=== PATIENT | female | born 1955 | race Caucasian/White ===

== ENCOUNTER 2016-06-28 11:43 | Outpatient (CLI) ==
[2016-05-09 20:56] VITALS: BMI 34.9
[2016-06-28 13:35] LABS: ALBUMIN 4.6 g/dL (3.4-5.0); ALBUMIN/GLOBULIN RATIO 1.39; ANION GAP 15.7; BILIRUBIN,TOTAL 0.61 mg/dL (0.00-1.20); CALCIUM 9.5 mg/dL (8.2-10.2); CHOL/HDL RATIO 7.3 (4.5-5.5); CREATININE 1.82 mg/dL (0.60-1.30); POTASSIUM 3.7 mmol/L (3.5-5.10); TOTAL PROTEIN 7.9 g/dL (6.4-8.2)
[2016-06-28 14:01] LABS: BUN/CREATININE RATIO 14.28
== END 2016-06-28 11:44 | disposition home or self-care (01) ==
LOC: LAB 11:43
PROVIDERS: ATTEND Nurse Practitioner Family
DX: E78.5 Hyperlipidemia, unspecified (principal); E78.1 Pure hyperglyceridemia
CPT/HCPCS: 36415; 80053; 80061

== ENCOUNTER 2016-07-13 07:36 | Outpatient (CLI) | payer OTHER ==
[2016-05-09 20:56] VITALS: BMI 34.9
--- NOTE | 2016-07-13 09:36 | US ---
EXAM: Ultrasound abdomen limited HISTORY: Right upper quadrant abdominal tenderness COMPARISON: None TECHNIQUE: Limited ultrasound abdomen right upper quadrant was performed FINDINGS: Visualized portion pancreas appears normal. Portions of the pancreas obscured secondary bowel gas shadowing. Liver is top normal in size. Liver is diffusely increased and echogenicity. Gallbladder is fluid-filled without gallbladder wall thickening, pericholecystic fluid, or shadowing gallstones. No biliary duct dilation with the common bile duct measuring 0.5 cm. Right kidney keshav sures 8.3 cm in length without hydronephrosis. IMPRESSION: 1. No cholelithiasis or cholecystitis. 2. Echogenic liver, consistent with hepatic steatosis and/or hepatic parenchymal disease.
[2016-07-13 13:00] LABS: BASOPHILS # (AUTO) 0.1 K/uL (0-0.2); BASOPHILS % (AUTO) 0.9 % (0.0-3.0); EOSINOPHILS # (AUTO) 0.2 K/ul (0.0-0.7); EOSINOPHILS % (AUTO) 2.3 % (0.0-7.0); HEMATOCRIT 41.2 % (37.0-47.0); HEMOGLOBIN 13.3 g/dl (12.0-16.0); IMMATURE GRANULOCYTE % (AUTO) 0.1 % (0.0-5.0); LYMPHOCYTES # (AUTO) 3.3 K/uL (0.60-3.4); MEAN CORPUSCULAR HEMOGLOBIN 28.3 pg (27.0-31.0); MEAN CORPUSCULAR HGB CONC 32.3 (31.8-35.4); MEAN CORPUSCULAR VOLUME 87.7 fl (81.0-99.0); MONOCYTES # (AUTO) 0.4 K/uL (0.4-2.0); MONOCYTES % (AUTO) 5.4 (0-10); NEUTROPHILS % (AUTO) 43.3; PLATELET COUNT 265 10^3/uL (140-440); WHITE BLOOD COUNT 6.91 K/ul (4.6-10.2)
[2016-07-13 13:31] LABS: ALBUMIN 4.8 g/dL (3.4-5.0); ALBUMIN/GLOBULIN RATIO 1.3; ANION GAP 21.7; BILIRUBIN,TOTAL 0.56 mg/dL (0.00-1.20); BUN/CREATININE RATIO 15.68; CREATININE 2.55 mg/dL (0.60-1.30); FERRITIN 111.72 ng/mL (4.63-204.00); POTASSIUM 3.7 mmol/L (3.5-5.10); TOTAL PROTEIN 8.5 g/dL (6.4-8.2)
== END 2016-07-13 07:37 | disposition home or self-care (01) ==
LOC: RAD 07:36
PROVIDERS: ATTEND Nurse Practitioner Family
DX: D64.9 Anemia, unspecified (principal); E78.5 Hyperlipidemia, unspecified; E03.9 Hypothyroidism, unspecified; R11.10 Vomiting, unspecified; R10.811 Right upper quadrant abdominal tenderness
CPT/HCPCS: 36415; 80053; 82150; 82607; 82728; 83540; 83550; 83690; 84443; 84466; 85025

== ENCOUNTER 2016-07-13 15:15 | Emergency (ER) | payer OTHER ==
[2016-07-13 15:21] VITALS: BP 125/85; TEMP 98.7; BMI 30.4
--- NOTE | 2016-07-13 16:27 | CT ---
EXAM: CT abdomen pelvis without contrast HISTORY: Epigastric pain, high amylase COMPARISON: 07/02/2014 TECHNIQUE: CT abdomen pelvis performed without intravenous contrast. Coronal and sagittal reformat jorge images obtained. FINDINGS: Lung bases clear. No free air. No acute abnormalities of the bones. There is posterior spinal fusion hardware in the lumbar spine. There are degenerative changes in the spine. Several o ld healed lower right rib fractures. Evaluation organ parenchyma limited without contrast. Heart is normal in size. Liver appears normal. Gallbladder appears normal. Pancreas appears normal. Sple en appears normal, excepting for granulomatous calcification. Adrenals appear normal. No hydroneph rosis or nephrolithiasis. There are areas of right renal cortical scarring. Bladder only mildly di stended and poorly evaluated, grossly unremarkable. The uterus appears normal. Aorta normal in chanell iber with atherosclerosis. Stomach appears normal. No dilated loops small bowel. Appendix appears normal. Colon appears normal. No inflammatory stranding in the abdomen or pelvis. There is a wide neck fat-containing left lateral pelvic wall hernia with colon approaching though not appearing to enter the hernia. IMPRESSION: 1. No acute inflammatory process identified in the abdomen or pelvis. 2. Areas of right renal cortical scarring, likely due to remote insult. 3. Left lateral pelvic wall hernia as described.
[2016-07-13] MEDS ORDERED: ZOFRAN 4 MG/2 ML IV STA (17:14)
[2016-07-13] MEDS ORDERED: MORPHINE 4 MG/ML SYRINGE IVP STA (17:14)
--- NOTE | 2016-07-13 17:32 | ED.PDOC ---
General ED Provider: Dr. SCARLETT AMAYA Chief Complaint: Nausea/Vomiting Stated Complaint: n/v Time Seen by Physician: 15:16 (history of renal failure, anemia requiring transfuion) Mode of Arrival: Walk-In Information Source: Patient Exam Limitations: No limitations Nursing and Triage Documentation Reviewed and Agree: Yes (in the E/D FOR ABNORMAL OUT PT LABS) Miscellaneous Complaint Exam - Complex/Multi-System Complaint/Exam Onset/Duration: CHRONIC Symptoms Are: Resolved Episodes Lasting: Days Initial Severity: Mild Current Severity: Mild Associated Signs and Symptoms: Reports: Weakness, Nausea, Vomiting. Denies: Decreased responsiveness, Confusion, Agitation, Dizziness, Syncope, Headache, Short of air, Cough, Wheezing, Hemoptysis, Chest pain, Palpitations, Edema, Diarrhea, Abdominal pain, Back pain, Dysuria, Hematemesis, Melena, Decreased oral intake, Fever, Diaphoresis, Immunocompromised, Anticoagulation Therapy, Recent medication changes, Indwelling medical records coder, Prior MRSA, Prior VRE, Recent trauma, Remote trauma Recent Echo/LV Function: Yes Respiratory Distress: None JVD Present: No Tachypnea Present: No Stridor Present: No Abdominal Findings: Present: Normal findings Glascow Coma Scale (see protocol): 15 Meningeal Signs Positive: No Focal Weakness: Present: None Focal Sensory Loss: Present: None Gait: Normal Babinski Sign: Negative Right, Negative Left Skin Findings: Present: Normal findings Review of Systems - Review Of Systems Constitutional: Reports: No symptoms Eyes: Reports: No symptoms Ears, Nose, Mouth, Throat: Reports: No symptoms Respiratory: Reports: No symptoms Cardiac: Reports: No symptoms GI: Reports: Nausea, Vomiting : Reports: No symptoms Musculoskeletal: Reports: No symptoms Skin: Reports: No symptoms Neurological: Reports: No symptoms Endocrine: Reports: No symptoms Hematologic/Lymphatic: Reports: No symptoms All Other Systems: Reviewed and Negative Past Medical History - Past Medical History Previously Healthy: Yes Endocrine: Reports: None, DM 2 Cardiovascular: Reports: Hypertension Respiratory: Reports: COPD Hematological: Reports: Anemia Gastrointestinal: Reports: None Genitourinary: Reports: None Neuro/Psych: Reports: TIA, Anxiety, Depression, Bipolar Disorder Musculoskeletal: Reports: Back Pain (PREVIOUS BACK FRACTURES) Cancer: Reports: None Last Menstrual Period: menopause Other Pertinent Past Medical History: BACK SURGERY TO REPAIR FRACTURES. - Surgical History General Surgical History: Reports: Orthopedic (BACK SURGERY TO REPAIR FRACTURES) , Back Surgery (BACK SURGERY TO REPAIR FRACTURES.). Denies: Tubal ligation ( left ovary removed) - Family History Family History: Reports: Unknown - Social History Smoking Status: Never smoker Hx Substance Use: No Alcohol Screening: Occasionally Physical Exam - Physical Exam Appearance: Well-appearing, No pain distress, Well-nourished Eyes: ONIEL, EOMI, Conjunctiva clear ENT: Ears normal, Nose normal, Oropharynx normal Respiratory: Airway patent, Breath sounds clear, Breath sounds equal, Respirations nonlabored Cardiovascular: RRR, Pulses normal, No rub, No murmur GI/: Soft, Nontender, No masses, Bowel sounds normal, No Organomegaly Musculoskeletal: Normal strength, ROM intact, No edema, No calf tenderness Skin: Warm, Dry, Normal color Neurological: Sensation intact, Motor intact, Reflexes intact, Cranial nerves intact, Alert, Oriented Psychiatric: Affect appropriate, Mood appropriate Physician Notification - Case Discussed Physician Notified: MUKUND HILL Time of Notification: 17:33 (GNOSTICISM) Critical Care Note - Critical Care Note Total Time (mins): 0 Course - Course Orders, Labs, Meds: Orders Category Date Time Status NPO REMINDER: IMAGING ONCE CARE 07/13/16 15:31 Completed SERUM PROTEIN ELECTROPHORESIS Routine LAB 07/13/16 17:13 Received URINALYSIS C & S IF INDICATED Stat LAB 07/13/16 17:21 Ordered URINE PROTEIN ELECTROPHORESIS Routine LAB 07/13/16 17:13 Received Morphine Sulfate [Morphine 4 mg/ml Syringe] MEDS 07/13/16 17:14 Discontinued 2 mg IVP ONCE STA Ondansetron HCl/Pf [Zofran 4 mg/2 ml] MEDS 07/13/16 17:14 Discontinued 4 mg IV ONCE STA CT ABDOMEN/PELVIS WO CONTRAST Stat RADS 07/13/16 15:30 Completed Medications Discontinued Medications Generic Name Dose Route Start Last Admin Trade Name Freq PRN Reason Stop Dose Admin Morphine Sulfate 2 mg 07/13/16 17:14 Morphine 4 Mg/Ml Syringe IVP 07/13/16 17:15 ONCE STA Ondansetron HCl 4 mg 07/13/16 17:14 Zofran 4 Mg/2 Ml IV 07/13/16 17:15 ONCE STA Vital Signs: Temp Pulse Resp BP Pulse Ox 07/13/16 15:16 98.7 F 89 16 125/85 98 Departure - Departure Time of Disposition: 17:33 Disposition: TSF SHORT-TRM HOSP Discharge Problem: Nausea, Vomiting, Renal failure Instructions: Chronic Kidney Disease (ED) Condition: Good Pt referred to PMD for follow-up: Yes (TRANSFERED ) Allergies/Adverse Reactions: Allergies amitriptyline [From Elavil] Adverse Reaction (Verified 07/13/16 15:23) amoxicillin Adverse Reaction (Verified 07/13/16 15:23) bupropion [From Wellbutrin] Adverse Reaction (Verified 07/13/16 15:23) chlorpromazine [From Thorazine] Adverse Reaction (Verified 07/13/16 15:23) divalproex sodium [From Depakote] Adverse Reaction (Verified 07/13/16 15:23) fluoxetine [From Prozac] Adverse Reaction (Verified 07/13/16 15:23) haloperidol [From Haldol] Adverse Reaction (Verified 07/13/16 15:23) lithium Adverse Reaction (Verified 07/13/16 15:23) paroxetine [From Paxil] Adverse Reaction (Verified 07/13/16 15:23) trazodone Adverse Reaction (Verified 07/13/16 15:23) Home Medications: Ambulatory Orders Metoprolol Tartrate [Lopressor] 50 mg PO BID 09/28/14 Hydrocodone/Acetaminophen [Hydrocodon-Acetaminoph 7.5-325] 1 each PO Q8H PRN Clonidine HCl 0.1 mg PO BEDTIME 01/13/16 Esomeprazole Magnesium [Nexium] 40 mg PO DAILY 01/13/16 Atorvastatin Calcium [Lipitor] 10 mg PO DAILY 04/20/16 Levothyroxine Sodium [Synthroid] 25 mcg PO QDAC #30 tablet 05/11/16 Metformin HCl [Glucophage] 500 mg PO BIDWM 05/11/16 Disposition Discussed With: Patient
[2016-07-13] MEDS ORDERED: SODIUM CHLORIDE 500 ML IV STA (17:35)
[2016-07-13 18:46] LABS: BILIRUBIN,URINE 1+ (NEGATIVE); KETONES,URINE Negative (NEGATIVE); LEUKOCYTE ESTERASE ,URINE 2+ (NEGATIVE); NITRITE,URINE Negative (NEGATIVE); PROTEIN,URINE 1+ (NEGATIVE); URINE, BLOOD Negative (NEGATIVE)
[2016-07-13 18:50] LABS: ADD URINE MICROSCOPIC YES
[2016-07-13 18:51] LABS: BACTERIA,URINE TRACE (NOT PRESENT)
[2016-07-16 13:09] LABS: A/G RATIO 1.1 (0.7-1.7); ALPHA-1 GLOBULIN 0.2 g/dL (0.0-0.4); ALPHA-2 GLOBULIN 1.2 g/dL (0.4-1.0); GAMMA GLOBULIN 0.9 g/dL (0.4-1.8); TOTAL GLOBULINS 3.4 g/dL (2.2-3.9)
[2016-07-16 15:13] LABS: URINE ALBUMIN 54.8 % (.); URINE ALPHA-1 GLOBULIN 3.7 % (.); URINE ALPHA-2 GLOBULIN 9.6 % (.); URINE BETA GLOBULIN 21.1 % (.); URINE GAMMA GLOBULIN 10.8 % (.); URINE M-SPIKE % 1.8 % (Not Observed); URINE TOTAL PROTEIN 84.7 mg/dL (Not Estab.)
== END 2016-07-13 18:40 | disposition short-term general hospital (02) ==
LOC: ED 15:15
DX: R11.2 Nausea with vomiting, unspecified (principal); N19 Unspecified kidney failure; R53.1 Weakness; D64.9 Anemia, unspecified; E11.9 Type 2 diabetes mellitus without complications; I10 Essential (primary) hypertension; Z79.899 Other long term (current) drug therapy; E78.5 Hyperlipidemia, unspecified; E03.9 Hypothyroidism, unspecified; R10.811 Right upper quadrant abdominal tenderness
CPT/HCPCS: 36415; 80053; 81001; 82150; 82607; 82728; 83540; 83550; 83690; 84156; 84165; 84166; 84443; 84466; 85025; 96361; 96374; 96375; 99285

== ENCOUNTER 2016-07-13 18:39 | Outpatient (CLI) ==
[2016-07-13 15:21] VITALS: BMI 30.4
== END 2016-07-13 18:40 | disposition home or self-care (01) ==
LOC: AMBL 18:39
PROVIDERS: ATTEND Internal Medicine
DX: R11.2 Nausea with vomiting, unspecified (principal)

== ENCOUNTER 2016-07-20 12:18 | Outpatient (CLI) | payer OTHER ==
[2016-07-20 13:34] LABS: ALBUMIN/GLOBULIN RATIO 1.21; ANION GAP 17.6; BILIRUBIN,TOTAL 0.33 mg/dL (0.00-1.20); BUN/CREATININE RATIO 12.19; CALCIUM 8.3 mg/dL (8.2-10.2); CREATININE 1.23 mg/dL (0.60-1.30); POTASSIUM 3.6 mmol/L (3.5-5.10); TOTAL PROTEIN 7.3 g/dL (6.4-8.2)
== END 2016-07-20 12:19 | disposition home or self-care (01) ==
LOC: LAB 12:18
PROVIDERS: ATTEND Nurse Practitioner Family
DX: R94.4 Abnormal results of kidney function studies (principal); Z87.828 Personal history of other (healed) physical injury and trauma
CPT/HCPCS: 36415; 80053

== ENCOUNTER 2016-07-23 10:42 | Outpatient (CLI) | payer OTHER ==
[2016-07-23 13:03] LABS: CHOL/HDL RATIO 6.2 (4.5-5.5)
== END 2016-07-23 10:43 | disposition home or self-care (01) ==
LOC: LAB 10:42
PROVIDERS: ATTEND Nurse Practitioner Family
DX: E11.9 Type 2 diabetes mellitus without complications (principal); E78.5 Hyperlipidemia, unspecified
CPT/HCPCS: 36415; 80061; 83036

== ENCOUNTER 2016-08-10 13:40 | Outpatient (CLI) | payer OTHER ==
[2016-08-10 17:31] LABS: ALBUMIN 4.1 g/dL (3.4-5.0); ALBUMIN/GLOBULIN RATIO 1.24; ANION GAP 16.2; BILIRUBIN,TOTAL 0.59 mg/dL (0.00-1.20); BUN/CREATININE RATIO 16.5; CALCIUM 9.3 mg/dL (8.2-10.2); CREATININE 1.03 mg/dL (0.60-1.30); POTASSIUM 4.2 mmol/L (3.5-5.10); TOTAL PROTEIN 7.4 g/dL (6.4-8.2)
== END 2016-08-10 13:41 | disposition home or self-care (01) ==
LOC: LAB 13:40
PROVIDERS: ATTEND Nurse Practitioner Family
DX: R11.2 Nausea with vomiting, unspecified (principal)
CPT/HCPCS: 36415; 80053; 82150; 83690

== ENCOUNTER 2016-08-23 08:20 | Emergency (ER) | payer OTHER ==
[2016-08-23 08:24] VITALS: TEMP 96.8; BMI 31.1
[2016-08-23] MEDS ORDERED: ZOFRAN 4 MG/2 ML IM STA (08:32)
[2016-08-23] MEDS ORDERED: MORPHINE 4 MG/ML SYRINGE IM STA (08:32)
[2016-08-23 08:55] LABS: BASOPHILS % (AUTO) 0.9 % (0.0-3.0); EOSINOPHILS # (AUTO) 0.2 K/ul (0.0-0.7); HEMATOCRIT 31.7 % (37.0-47.0); HEMOGLOBIN 9.8 g/dl (12.0-16.0); IMMATURE GRANULOCYTE % (AUTO) 0.2 % (0.0-5.0); LYMPHOCYTES % (AUTO) 44.7 (10.0-50.0); MEAN CORPUSCULAR HEMOGLOBIN 27.9 pg (27.0-31.0); MEAN CORPUSCULAR HGB CONC 30.9 (31.8-35.4); MEAN CORPUSCULAR VOLUME 90.3 fl (81.0-99.0); MONOCYTES # (AUTO) 0.3 K/uL (0.4-2.0); MONOCYTES % (AUTO) 7.5 (0-10); NEUTROPHILS # (AUTO) 1.9 K/ul (2.0-6.9); NEUTROPHILS % (AUTO) 42.7; PLATELET COUNT 220 10^3/uL (140-440); RED BLOOD COUNT 3.51 10^6/ul (4.20-5.40); WHITE BLOOD COUNT 4.54 K/ul (4.6-10.2)
[2016-08-23 08:57] LABS: BILIRUBIN,URINE Negative (NEGATIVE); KETONES,URINE Negative (NEGATIVE); LEUKOCYTE ESTERASE ,URINE 2+ (NEGATIVE); NITRITE,URINE Negative (NEGATIVE); PROTEIN,URINE Negative (NEGATIVE); URINE, BLOOD Negative (NEGATIVE)
[2016-08-23 09:07] LABS: ADD URINE MICROSCOPIC YES
[2016-08-23 09:09] LABS: BACTERIA,URINE 1+ (NOT PRESENT)
--- NOTE | 2016-08-23 09:24 | CT ---
EXAM: CT chest without contrast. HISTORY: Left thoracic spine and abdominal pain. COMPARISON: Radiograph 05/09/2016. TECHNIQUE: Multiple axial images of the chest were obtained without intravenous contrast. Images w ere reformatted in the sagittal and coronal planes. FINDINGS: Evaluation for lymphadenopathy is limited due to lack of intravenous contrast. Calcified mediastinal and hilar lymph nodes present. Heart size is normal. There is no pericardial effusion . The lungs are clear save for calcified granulomatous changes. No pleural effusion or pneumothorax i dentified. Posterior fusion with pedicle screw and quang fixation seen from L1 into the lower lumbar spine althou gh this is incompletely imaged. No acute abnormality of the thoracic spine identified. Suspect old right posterior 10th through 12th rib fractures. No acute abnormalities seen within the visualized abdomen. Benign thickening of the right adrenal gl and noted. IMPRESSION: No acute abnormality of the chest.
--- NOTE | 2016-08-23 09:25 | CT ---
EXAM: CT thoracic spine without contrast. HISTORY: Left thoracic pain. COMPARISON: None available. TECHNIQUE: Multiple axial images of the thoracic spine were obtained without intravenous contrast. Images were reformatted in the sagittal and coronal planes. FINDINGS: Pedicle screw and quang fixation seen from L1-L4 on the grill associate view, which is only partially imaged on the CT images. Thoracic spine demonstrates normal curvature and alignment. The vertebra l body heights are normal. There is loss of disc height at T10-11. No fracture or subluxation iden tified. No significant spinal canal stenosis seen in the thoracic spine. Multilevel facet arthropa thy is present with some areas of neural foraminal narrowing in the mid to lower thoracic spine. Vi sualized lungs are clear. Calcified mediastinal and hilar lymph nodes noted. No significant abnorm ality identified within the visualized abdomen. Old right posterior 10th through 11th rib fractures noted. IMPRESSION: No acute abnormality of the thoracic spine.
--- NOTE | 2016-08-23 09:29 | CT ---
EXAM: CT of the lumbar spine without contrast History: Lower back pain. Comparison: Lumbar spine CT 09/28/2014, CT abdomen pelvis and CT thoracic spine 08/23/2016 Technique: Multiplanar CT images through the lumbar spine were obtained without the administration of IV contrast. Findings: Osteopenia. Stable and grossly intact posterior fusion hardware from L1-L4. No signific ant interval change in the multilevel degenerative disc space narrowing as previously described. [place] spinal canal is difficult to evaluate due to the streak artifact and beam hardening artifact from hardware. No acute fracture or subluxation. No significant interval change in the multilevel bila teral bony neural foraminal narrowing which is severe on the right at L5-S1. Impression: 1. No acute osseous abnormality of the lumbar spine. 2. Stable hardware. 3. No significant interval change in the severe right-sided bony neural foraminal narrowing at L5-S 1.
--- NOTE | 2016-08-23 09:45 | CT ---
EXAM: CT abdomen pelvis without contrast HISTORY: Left flank pain COMPARISON: None TECHNIQUE: CT abdomen pelvis performed without intravenous contrast. Coronal and sagittal reformat jorge images obtained FINDINGS: Please see separate report CT chest regarding findings in the lower chest. No free air. No acute abnormalities of the bones. There is spinal fusion hardware. Please see separate report CT. There are old right rib fractures. Please see separate port CT parietal thoracic and lumbar sp ine. There are old right rib fractures. Evaluation organ parenchyma limited without contrast. Pearl er appears normal. Gallbladder appears normal. Pancreas appears normal. Granulomatous calcificati on in the spleen. Spleen otherwise appears normal. Adrenals appear normal. Aorta normal in calibe r. Atherosclerosis. Uterus appears normal. Bladder only minimally distended and poorly evaluated, grossly unremarkable. Small fat-containing umbilical hernia. No lymphadenopathy or ascites. Stom ach appears normal. No dilated loops small bowel. Appendix appears normal. Colon appears normal. No hydronephrosis or nephrolithiasis. There are areas of right renal cortical scarring. No calculi visualized in normal course of the ureters. There is wide necked left lateral pelvic hernia with col on minimally projecting in this region. IMPRESSION: 1. No use inflammatory process identified in the abdomen pelvis. No hydronephrosis or nephrolithia sis. 2. Areas of right renal cortical scarring, likely due to remote insult. 3. Wide neck left lateral pelvic wall hernia with colon minimally projecting in this region.
[2016-08-23 10:30] LABS: ANION GAP 15.1; ASPARTATE AMINO TRANSFERASE 15 U/L (15-37); BLOOD UREA NITROGEN 19 mg/dL (7-18); CALCIUM 9.6 mg/dL (8.2-10.2); CARBON DIOXIDE 30 mmol/L (21-32); CHLORIDE 105 mmol/L (98-107); GLUCOSE 87 mg/dL (70-110); POTASSIUM 4.1 mmol/L (3.5-5.10); SODIUM 146 mmol/L (136-145)
[2016-08-23 10:31] LABS: ALANINE AMINOTRANSFERASE 10 U/L (12-78); ALBUMIN 4.2 g/dL (3.4-5.0); ALBUMIN/GLOBULIN RATIO 1.31; AMYLASE 41 U/L (25-115); CREATINE KINASE 62 U/L; LIPASE 49 U/L (8-78); TOTAL PROTEIN 7.4 g/dL (6.4-8.2)
[2016-08-23 10:57] LABS: ALKALINE PHOSPHATASE 50 U/L (53-141); BILIRUBIN,TOTAL 0.29 mg/dL (0.00-1.20)
--- NOTE | 2016-08-23 10:57 | ED.PDOC ---
General ED Provider: Dr. ALEX SNELL-ER Chief Complaint: Back Pain Stated Complaint: im having pain in my lower back and its radiating around to my front Time Seen by Physician: 08:30 Mode of Arrival: Walk-In Information Source: Patient Exam Limitations: No limitations Primary Care Provider: [facility] Nursing and Triage Documentation Reviewed and Agree: Yes Musculoskeletal Complaint Exam - Back Pain Complaint/Exam Mechanism of Injury: Reports: No known trauma Onset/Duration: several days Symptoms Are: Still present Timing: Constant Initial Severity: Mild Current Severity: Mild Location: Reports: Discrete (lumbar spine) Character: Reports: Dull, Aching Aggravating: Reports: Movements, Lifting, Bending, Walking Alleviating: Reports: None Associated Signs and Symptoms: Reports: Flank pain TAD Risk Factors: Reports: Hypertension Cauda Equina Risk Factors: Reports: None Epidural Abcess Risk Factors: Reports: None Focal Tenderness: No Paraspinal Muscle Tenderness: No Paraspinal Muscle Spasm: No Scoliosis: No Lordosis: No Kyphosis: No SLR Test: Right Negative, Left Negative Hip Motion Testing Pain: Right Negative, Left Negative Focal Weakness: Present: None Focal Sensory Loss: Present: None Differential Diagnoses: Renal Colic Review of Systems - Review Of Systems Constitutional: Reports: No symptoms Eyes: Reports: No symptoms Ears, Nose, Mouth, Throat: Reports: No symptoms Respiratory: Reports: No symptoms Cardiac: Reports: No symptoms GI: Reports: No symptoms : Reports: Flank pain Musculoskeletal: Reports: No symptoms Skin: Reports: No symptoms Neurological: Reports: No symptoms Endocrine: Reports: No symptoms Hematologic/Lymphatic: Reports: No symptoms All Other Systems: Reviewed and Negative Past Medical History - Past Medical History Previously Healthy: Yes Endocrine: Reports: None, DM 2 Cardiovascular: Reports: Hypertension Respiratory: Reports: COPD Hematological: Reports: Anemia Gastrointestinal: Reports: None Genitourinary: Reports: None Neuro/Psych: Reports: TIA, Anxiety, Depression, Bipolar Disorder Musculoskeletal: Reports: Back Pain (PREVIOUS BACK FRACTURES) Cancer: Reports: None Last Menstrual Period: N/A Other Pertinent Past Medical History: BACK SURGERY TO REPAIR FRACTURES. - Surgical History General Surgical History: Reports: Orthopedic (BACK SURGERY TO REPAIR FRACTURES) , Back Surgery (BACK SURGERY TO REPAIR FRACTURES.). Denies: Tubal ligation ( left ovary removed) - Family History Family History: Reports: Unknown - Social History Smoking Status: Never smoker Hx Substance Use: No Alcohol Screening: Occasionally Physical Exam - Physical Exam Appearance: Well-appearing, No pain distress, Well-nourished Pain Distress: Mild Eyes: ONIEL, EOMI, Conjunctiva clear ENT: Ears normal, Nose normal, Oropharynx normal Neck: Supple Respiratory: Airway patent, Breath sounds clear, Breath sounds equal, Respirations nonlabored Cardiovascular: RRR, Pulses normal, No rub, No murmur GI/: Soft, Nontender, No masses, Bowel sounds normal, No Organomegaly Musculoskeletal: Normal strength, ROM intact, No edema, No calf tenderness Skin: Warm, Dry, Normal color Neurological: Sensation intact, Motor intact, Reflexes intact, Cranial nerves intact, Alert, Oriented Psychiatric: Affect appropriate Interpretation - Radiology Interpretation Radiology Interpretation By: Radiologist Radiology Results: Negative Exam Interpreted: CT Scan - EKG Interpretation Time of EKG #1: 10:57 Rate: Normal Rhythm: Sinus Ectopy: None Palms: NL ST Segment: Normal Re-Evaluation - Re-Evaluation Time of Re-Evaluation: 10:58 Status: Improved Vital Signs Stable: Yes Pain Level: 1 Appearance: NAD Lungs: Clear Skin: Warm and Dry Neuro: Alert and Oriented X3 CV: RRR Critical Care Note - Critical Care Note Total Time (mins): 0 Course - Course Hematology/Chemistry: 08/23/16 08:45 08/23/16 08:45 Orders, Labs, Meds: Lab Review 08/23/16 08:45 WBC 4.54 L RBC 3.51 L Hgb 9.8 L Hct 31.7 L MCV 90.3 MCH 27.9 MCHC 30.9 L RDW Coeff of Kwame 14.7 Plt Count 220 Immature Gran % (Auto) 0.2 Neut % (Auto) 42.7 Lymph % (Auto) 44.7 [place] % (Auto) 7.5 Eos % (Auto) 4.0 Baso % (Auto) 0.9 Immature Gran # (Auto) 0.0 Neut # 1.9 L Lymph # 2.0 [place] # 0.3 L Eos # 0.2 Baso # 0.0 D-Dimer 0.35 Sodium 146 H Potassium 4.1 Chloride 105 Carbon Dioxide 30 Anion Gap 15.1 BUN 19 H Creatinine 1.00 Estimated GFR (MDRD) 57.00 BUN/Creatinine Ratio 19.00 Glucose 87 Calcium 9.6 Total Bilirubin 0.29 AST 15 ALT 10 L Alkaline Phosphatase 50 L Total Creatine Kinase 62 Troponin I < 0.0100 Total Protein 7.4 Albumin 4.2 Globulin 3.2 Albumin/Globulin Ratio 1.31 Amylase 41 Lipase 49 Urine Color Yellow Urine Clarity Clear Urine pH 7.0 Ur Specific [place] 1.015 Urine Protein Negative Urine Glucose (UA) Negative Urine Ketones Negative Urine Blood Negative Urine Nitrite Negative Urine Bilirubin Negative Urine Urobilinogen 0.2 Ur Leukocyte Esterase 2+ Urine Microscopic RBC 0-2 Urine Microscopic WBC 10-20 Ur Squamous Epith Cells 2-5 Urine Bacteria 1+ Orders Category Date Time Status EKG-(ED ONLY) Stat CARDIO 08/23/16 08:30 Completed AMYLASE Stat LAB 08/23/16 08:45 Results CBC W/ AUTO DIFF Stat LAB 08/23/16 08:45 Completed COMPREHENSIVE METABOLIC PANEL Stat LAB 08/23/16 08:45 Results CREATINE KINASE Stat LAB 08/23/16 08:45 Results D-DIMER Stat LAB 08/23/16 08:45 Completed LIPASE Stat LAB 08/23/16 08:45 Results TROPONIN I Stat LAB 08/23/16 08:45 Results URINALYSIS C & S IF INDICATED Stat LAB 08/23/16 08:45 Completed URINE CULTURE Stat LAB 08/23/16 09:10 Received Morphine Sulfate [Morphine 4 mg/ml Syringe] MEDS 08/23/16 08:32 Discontinued 4 mg IM ONCE STA Ondansetron HCl/Pf [Zofran 4 mg/2 ml] MEDS 08/23/16 08:32 Discontinued 4 mg IM ONCE STA CT ABDOMEN/PELVIS WO CONTRAST Stat RADS 08/23/16 08:[address] CHEST W/O CONTRAST Stat RADS 08/23/16 08:[address] LUMBAR SPINE W/O CONTRAST Stat RADS 08/23/16 08:[address] THORACIC SPINE W/O CONTRAST Stat RADS 08/23/16 08:31 Completed Medications Discontinued Medications Generic Name Dose Route Start Last Admin Trade Name Freq PRN Reason Stop Dose Admin Morphine Sulfate 4 mg 08/23/16 08:32 08/23/16 09:03 Morphine 4 Mg/Ml Syringe IM 08/23/16 08:33 4 mg ONCE STA Administration Ondansetron HCl 4 mg 08/23/16 08:32 08/23/16 09:03 Zofran 4 Mg/2 Ml IM 08/23/16 08:33 4 mg ONCE STA Administration the patient states she has chronic back pain but ran out of her norco last night Vital Signs: Temp Pulse Resp BP Pulse Ox 08/23/16 08:21 96.8 F L 65 20 176/101 H 98 Departure - Departure Time of Disposition: 10:58 Disposition: HOME SELF-CARE Discharge Problem: Chronic back pain Qualifiers: Back pain location: low back pain Back pain laterality: midline Sciatica presence: without sciatica Qualifier Code: (M54.5) Low back pain UTI (urinary tract infection) Qualifiers: Urinary tract infection type: site unspecified Hematuria presence: without hematuria Qualifier Code: (N39.0) Urinary tract infection, site not specified Instructions: Urinary Tract Infection in Women (ED) Condition: Good Pt referred to PMD for follow-up: Yes Additional Instructions: cipro 500mg bid x 7days..norco 7.5mg q 6hrs prn pain #10--f/u with pcp Allergies/Adverse Reactions: Allergies amitriptyline [From Elavil] Adverse Reaction (Verified 08/23/16 08:25) amoxicillin Adverse Reaction (Verified 08/23/16 08:25) bupropion [From Wellbutrin] Adverse Reaction (Verified 08/23/16 08:25) chlorpromazine [From Thorazine] Adverse Reaction (Verified 08/23/16 08:25) divalproex sodium [From Depakote] Adverse Reaction (Verified 08/23/16 08:25) fluoxetine [From Prozac] Adverse Reaction (Verified 08/23/16 08:25) haloperidol [From Haldol] Adverse Reaction (Verified 08/23/16 08:25) lithium Adverse Reaction (Verified 08/23/16 08:25) paroxetine [From Paxil] Adverse Reaction (Verified 08/23/16 08:25) trazodone Adverse Reaction (Verified 08/23/16 08:25) Home Medications: Ambulatory Orders Metoprolol Tartrate [Lopressor] 50 mg PO BID 09/28/14 Esomeprazole Magnesium [Nexium] 40 mg PO DAILY 01/13/16 Atorvastatin Calcium [Lipitor] 80 mg PO DAILY 04/20/16 Levothyroxine Sodium [Synthroid] 25 mcg PO QDAC #30 tablet 05/11/16 Metformin HCl [Glucophage] 500 mg PO BIDWM 05/11/16 Hydrocodone Bit/Acetaminophen [[place] 7.5-325] 1 tab PO TID 08/23/16 Losartan Potassium [Cozaar] 50 mg PO DAILY 08/23/16 Tizanidine HCl 4 mg PO BID 08/23/16 Disposition Discussed With: Patient
[2016-08-23 11:09] VITALS: BP 167/98
== END 2016-08-23 11:12 | disposition home or self-care (01) ==
LOC: ED 08:20
DX: M54.5 Low back pain (principal); N39.0 Urinary tract infection, site not specified; I10 Essential (primary) hypertension; E11.9 Type 2 diabetes mellitus without complications; Z79.899 Other long term (current) drug therapy
CPT/HCPCS: 36415; 80053; 81001; 82150; 82550; 83690; 84484; 85025; 85379; 87086; 93005; 93010; 96372; 99283

== ENCOUNTER 2016-10-16 08:48 | Outpatient (CLI) ==
[2016-10-16 13:43] LABS: ALBUMIN 4.2 g/dL (3.4-5.0); ALBUMIN/GLOBULIN RATIO 1.27; BILIRUBIN,TOTAL 0.45 mg/dL (0.00-1.20); BUN/CREATININE RATIO 16.83; CALCIUM 9.7 mg/dL (8.2-10.2); CHOL/HDL RATIO 5.4 (4.5-5.5); CREATININE 1.01 mg/dL (0.60-1.30); TOTAL PROTEIN 7.5 g/dL (6.4-8.2)
== END 2016-10-16 08:49 | disposition home or self-care (01) ==
LOC: LAB 08:48
PROVIDERS: ATTEND Nurse Practitioner Family
DX: I10 Essential (primary) hypertension (principal); E11.9 Type 2 diabetes mellitus without complications; E78.1 Pure hyperglyceridemia
CPT/HCPCS: 36415; 80053; 80061; 83036; 84443

== ENCOUNTER 2016-11-01 17:54 | Emergency (ER) | payer OTHER ==
[2016-11-01 18:03] VITALS: BP 95/63; TEMP 98.4; BMI 27.6
--- NOTE | 2016-11-01 18:22 | ED.PDOC ---
General ED Provider: Dr. ARACELI GAONA JR Chief Complaint: Back Pain Stated Complaint: Lumbar pain et rt hip pain. Sees pain management for same. Saw pain management 3 days ago. Rec'd injection. Current episode of pain started 3 days ago.[End]chronic backpain 98.4 78 20 95% 95/63 01/31 patient seen recently these symptoms are not changed and exam is improved from priorexam frank adamant that she has new symptoms and is very concerned about perceived defect in right iliac crest after evaluation by surgeon for hernia(not needing repair per patient) Time Seen by Physician: 18:20 Mode of Arrival: Walk-In Information Source: Patient Exam Limitations: No limitations Primary Care Provider: BARBARA MOLINA Nursing and Triage Documentation Reviewed and Agree: No Review of Systems - Review Of Systems Constitutional: Reports: Malaise, Weakness Eyes: Reports: No symptoms Ears, Nose, Mouth, Throat: Reports: No symptoms Respiratory: Reports: No symptoms Cardiac: Reports: No symptoms GI: Reports: Abdominal pain, Nausea : Reports: No symptoms Musculoskeletal: Reports: Back pain, Joint pain Skin: Reports: No symptoms Neurological: Reports: Tingling, Weakness Endocrine: Reports: No symptoms Hematologic/Lymphatic: Reports: No symptoms All Other Systems: Other Past Medical History - Past Medical History Previously Healthy: Yes Endocrine: Reports: None, DM 2 Cardiovascular: Reports: Hypertension Respiratory: Reports: COPD Hematological: Reports: Anemia Gastrointestinal: Reports: None Genitourinary: Reports: None Neuro/Psych: Reports: TIA, Anxiety, Depression, Bipolar Disorder Musculoskeletal: Reports: Back Pain (PREVIOUS BACK FRACTURES) Cancer: Reports: None Last Menstrual Period: unknown Other Pertinent Past Medical History: BACK SURGERY TO REPAIR FRACTURES. - Surgical History General Surgical History: Reports: Orthopedic (BACK SURGERY TO REPAIR FRACTURES) , Back Surgery (BACK SURGERY TO REPAIR FRACTURES.). Denies: Tubal ligation ( left ovary removed) - Family History Family History: Reports: Unknown - Social History Smoking Status: Never smoker Hx Substance Use: No Alcohol Screening: None Physical Exam - Physical Exam Appearance: Well-appearing Pain Distress: Mild Eyes: ONIEL, EOMI, Conjunctiva clear ENT: Ears normal, Nose normal, Oropharynx normal Neck: Supple Respiratory: Airway patent, Breath sounds clear, Breath sounds equal, Respirations nonlabored Cardiovascular: RRR, Pulses normal, No rub, No murmur GI/: Soft, Bowel sounds normal, No Organomegaly, Tender, Mass Musculoskeletal: ROM intact, No edema, No calf tenderness Skin: Warm, Dry, Normal color Neurological: Sensation intact Psychiatric: Affect appropriate, Mood appropriate Interpretation - Radiology Interpretation Radiology Interpretation By: Radiologist Radiology Results: No acute changes Exam Interpreted: CT Scan Critical Care Note - Critical Care Note Total Time (mins): 0 Course - Course Orders, Labs, Meds: Orders Category Date Time Status Morphine Sulfate [Morphine 4 mg/ml Syringe] MEDS 11/01/16 18:47 Discontinued 4 mg IM ONCE STA Ondansetron HCl/Pf [Zofran 4 mg/2 ml] MEDS 11/01/16 18:47 Discontinued 4 mg IM ONCE STA CT LUMBAR SPINE W/O CONTRAST Stat RADS 11/01/16 18:21 Completed Medications Discontinued Medications Generic Name Dose Route Start Last Admin Trade Name Freq PRN Reason Stop Dose Admin Morphine Sulfate 4 mg 11/01/16 18:47 11/01/16 18:57 Morphine 4 Mg/Ml Syringe IM 11/01/16 18:48 4 mg ONCE STA Administration Ondansetron HCl 4 mg 11/01/16 18:47 11/01/16 18:57 Zofran 4 Mg/2 Ml IM 11/01/16 18:48 4 mg ONCE STA Administration Vital Signs: Temp Pulse Resp BP Pulse Ox 11/01/16 17:55 98.4 F 78 20 95/63 95 Departure - Departure Time of Disposition: 19:19 Disposition: HOME SELF-CARE Discharge Problem: Backache Instructions: Chronic Back Pain (ED) Condition: Good Pt referred to PMD for follow-up: Yes Additional Instructions: follow up with pain management as planned return if weakness in arm or leg or fever over 101.0 Allergies/Adverse Reactions: Allergies amitriptyline [From Elavil] Adverse Reaction (Verified 11/01/16 18:04) amoxicillin Adverse Reaction (Verified 11/01/16 18:04) bupropion [From Wellbutrin] Adverse Reaction (Verified 11/01/16 18:04) chlorpromazine [From Thorazine] Adverse Reaction (Verified 11/01/16 18:04) divalproex sodium [From Depakote] Adverse Reaction (Verified 11/01/16 18:04) fluoxetine [From Prozac] Adverse Reaction (Verified 11/01/16 18:04) haloperidol [From Haldol] Adverse Reaction (Verified 11/01/16 18:04) lithium Adverse Reaction (Verified 11/01/16 18:04) paroxetine [From Paxil] Adverse Reaction (Verified 11/01/16 18:04) trazodone Adverse Reaction (Verified 11/01/16 18:04) Home Medications: Ambulatory Orders Metoprolol Tartrate [Lopressor] 50 mg PO BID 09/28/14 Esomeprazole Magnesium [Nexium] 40 mg PO DAILY 01/13/16 Atorvastatin Calcium [Lipitor] 80 mg PO DAILY 04/20/16 Levothyroxine Sodium [Synthroid] 25 mcg PO QDAC #30 tablet 05/11/16 Metformin HCl [Glucophage] 500 mg PO BIDWM 05/11/16 Hydrocodone Bit/Acetaminophen [[place] 7.5-325] 1 tab PO TID 08/23/16 Losartan Potassium [Cozaar] 50 mg PO DAILY 08/23/16 Tizanidine HCl 4 mg PO BID 08/23/16 Clonidine HCl 0.2 mg PO BEDTIME 08/31/16 Dextroamphetamine/Amphetamine [Adderall 15 Mg Tablet] 15 mg PO BID #60
[2016-11-01] MEDS ORDERED: ZOFRAN 4 MG/2 ML IM STA (18:47)
[2016-11-01] MEDS ORDERED: MORPHINE 4 MG/ML SYRINGE IM STA (18:47)
--- NOTE | 2016-11-01 19:11 | CT ---
EXAM: CT scan cervical spine HISTORY: Pain COMPARISON: CT scan lumbar spine 08/23/2016 FINDINGS: Contiguous axial images obtained through the lumbar spine utilizing 3-mm collimation. Sa gittal and coronal reconstructions were imaged and reviewed. There is moderate generalized osteopeni a. There is loss of the normal lumbar lordosis suggesting paraspinal muscle spasm. Stable fusion coombs rdware extends from L1-L4... There is multilevel degenerative disc disease.. At L4-L5 there is yanira tral canal and lateral recess narrowing secondary to concentric bulge with ligamentum flavum and fac et hypertrophy.. At L5-S1 there is moderate facet arthropathy with spondylitic bulge which narrows both neural foramen IMPRESSION: Stable fusion hardware L1-L4. Multilevel discogenic disease. At L4-L5 there is central canal and bilateral lateral recess narrowing. There is bilateral neural foraminal narrowing at L5-S1.
== END 2016-11-01 19:29 | disposition home or self-care (01) ==
LOC: ED 17:54
DX: M54.5 Low back pain (principal); G89.29 Other chronic pain; M25.551 Pain in right hip
CPT/HCPCS: 96372; 99282

== ENCOUNTER 2016-11-17 12:46 | Emergency (ER) ==
[2016-11-17 12:51] VITALS: BP 137/88; TEMP 96.6; BMI 27.3
--- NOTE | 2016-11-17 13:11 | ED.PDOC ---
General ED Provider: Dr. SATISH JIANG Chief Complaint: Non-specific Complaint Stated Complaint: patient woke up with left side of the boday tngloing and numb , came for the evaluatiuon, no weakness no slurry speach. Time Seen by Physician: 13:09 Mode of Arrival: Walk-In Information Source: Patient Primary Care Provider: BARBARA MOLINA Nursing and Triage Documentation Reviewed and Agree: Yes Neurological Complaint Exam - Weakness Complaint/Exam Onset: Sudden (woke up with tingling sensation left side of the body) Symptoms Are: Still present Timing: Constant Episodes Lasting: Hours Initial Severity: Moderate Current Severity: Mild Aggravating: Reports: None Alleviating: Reports: None Associated Signs and Symptoms: Reports: Chest pain, Change in medication. Denies: Nausea, Vomiting, Diaphoresis, Tinnitus, Short of air, Palpitations, Unsteady gait, GI blood loss, Visual changes, Decreased oral intake, Change in diet, OTC meds, Loss of balance Related History: Similar episode Cardiac Risk Factors: Reports: None CVA Risk Factors: Reports: Hypertension Related Surgical History: Reports: None JVD Present: No Carotid Bruit Present: No Rectal Heme Positive: No Nystagmus Present: No Gag Reflex Present: No Meningeal Signs Positive: No Focal Weakness: Present: None Focal Sensory Loss: Present: None Gait: Normal Biaehb-[place]: Normal Findings Romberg Test Positive: No Babinski Sign: Negative Right, Negative Left Heel to Toe Normal: No Bunnell-Hallpike Test Positive: No Differential Diagnoses: NE, Metabolic abnormalities, Other (cva) Quality Indicators for Cardiac Chest Pain: EKG in 10min. Review of Systems - Review Of Systems Constitutional: Reports: No symptoms Eyes: Reports: No symptoms Ears, Nose, Mouth, Throat: Reports: No symptoms Respiratory: Reports: No symptoms Cardiac: Reports: Chest pain GI: Reports: No symptoms : Reports: No symptoms Musculoskeletal: Reports: No symptoms Skin: Reports: No symptoms Neurological: Reports: Numbness Endocrine: Reports: No symptoms Hematologic/Lymphatic: Reports: No symptoms All Other Systems: Reviewed and Negative Past Medical History - Past Medical History Previously Healthy: Yes Endocrine: Reports: None, DM 2 Cardiovascular: Reports: Hypertension Respiratory: Reports: COPD Hematological: Reports: Anemia Gastrointestinal: Reports: None Genitourinary: Reports: None Neuro/Psych: Reports: TIA, Anxiety, Depression, Bipolar Disorder Musculoskeletal: Reports: Back Pain (PREVIOUS BACK FRACTURES) Cancer: Reports: None Last Menstrual Period: N/A Other Pertinent Past Medical History: BACK SURGERY TO REPAIR FRACTURES. - Surgical History General Surgical History: Reports: Orthopedic (BACK SURGERY TO REPAIR FRACTURES) , Back Surgery (BACK SURGERY TO REPAIR FRACTURES.). Denies: Tubal ligation ( left ovary removed) - Family History Family History: Reports: Unknown - Social History Smoking Status: Never smoker Hx Substance Use: No Alcohol Screening: None - Immunizations Tetanus Shot up to Date: Yes Physical Exam - Physical Exam Appearance: Well-appearing, No pain distress, Well-nourished Eyes: ONIEL, EOMI, Conjunctiva clear ENT: Ears normal, Nose normal, Oropharynx normal Respiratory: Airway patent, Breath sounds clear, Breath sounds equal, Respirations nonlabored Cardiovascular: RRR, Pulses normal, No rub, No murmur GI/: Soft, Nontender, No masses, Bowel sounds normal, No Organomegaly Musculoskeletal: Normal strength, ROM intact, No edema, No calf tenderness Skin: Warm, Dry, Normal color Neurological: Sensation intact, Motor intact, Reflexes intact, Cranial nerves intact, Alert, Oriented Psychiatric: Affect appropriate, Mood appropriate Interpretation - Radiology Interpretation Radiology Interpretation By: Radiologist Radiology Results: Negative Exam Interpreted: CT Scan Critical Care Note - Critical Care Note Total Time (mins): 0 Course - Course Hematology/Chemistry: 11/17/16 13:15 11/17/16 13:15 Orders, Labs, Meds: Lab Review 11/17/16 13:15 WBC 4.25 L RBC 3.41 L Hgb 9.7 L Hct 29.9 L MCV 87.7 MCH 28.4 MCHC 32.4 RDW Coeff of Kwame 15.4 H Plt Count 229 Immature Gran % (Auto) 0.0 Neut % (Auto) 39.1 Lymph % (Auto) 50.8 H Edmonson % (Auto) 6.1 Eos % (Auto) 2.8 Baso % (Auto) 1.2 Immature Gran # (Auto) 0.0 Neut # 1.7 L Lymph # 2.2 Edmonson # 0.3 L Eos # 0.1 Baso # 0.1 Sodium 143 Potassium 4.0 Chloride 110 H Carbon Dioxide 22 Anion Gap 15.0 BUN 18 Creatinine 1.06 Estimated GFR (MDRD) 53.00 BUN/Creatinine Ratio 16.98 Glucose 132 H Calcium 9.3 Total Bilirubin 0.29 AST 25 ALT 21 Alkaline Phosphatase 40 L Total Creatine Kinase 54 Troponin I < 0.0100 Total Protein 6.8 Albumin 3.9 Globulin 2.9 Albumin/Globulin Ratio 1.34 Orders Category Date Time Status EKG-(ED ONLY) Stat CARDIO 11/17/16 13:06 Ordered CBC W/ AUTO DIFF Stat LAB 11/17/16 13:15 Completed COMPREHENSIVE METABOLIC PANEL Stat LAB 11/17/16 13:15 Completed CREATINE KINASE Stat LAB 11/17/16 13:15 Completed TROPONIN I Stat LAB 11/17/16 13:15 Completed Aspirin [Aspirin Chewable] MEDS 11/17/16 13:12 Discontinued 324 mg PO ONCE STA CT CERVICAL SPINE W/O CONTRAST Stat RADS 11/17/16 13:[address] HEAD W/O CONTRAST Stat RADS 11/17/16 13:06 Completed Medications Discontinued Medications Generic Name Dose Route Start Last Admin Trade Name Freq PRN Reason Stop Dose Admin Aspirin 324 mg 11/17/16 13:12 11/17/16 13:16 Aspirin Chewable PO 11/17/16 13:13 324 mg ONCE STA Administration Vital Signs: Temp Pulse Resp BP Pulse Ox 11/17/16 12:46 96.6 F L 71 94 H 137/88 94 L Departure - Departure Time of Disposition: 14:05 Disposition: HOME SELF-CARE Discharge Problem: Cervical radiculopathy Instructions: Cervical Radiculopathy (ED) Condition: Stable Pt referred to PMD for follow-up: Yes Additional Instructions: asa 81 po daily Iron pills otc rest if not better needs MRI c spine f/u [facility] \ Prescriptions: Prednisone 10 mg PO BIDWM #14 tablet Allergies/Adverse Reactions: Allergies amitriptyline [From Elavil] Adverse Reaction (Verified 11/01/16 18:04) amoxicillin Adverse Reaction (Verified 11/01/16 18:04) bupropion [From Wellbutrin] Adverse Reaction (Verified 11/01/16 18:04) chlorpromazine [From Thorazine] Adverse Reaction (Verified 11/01/16 18:04) divalproex sodium [From Depakote] Adverse Reaction (Verified 11/01/16 18:04) fluoxetine [From Prozac] Adverse Reaction (Verified 11/01/16 18:04) haloperidol [From Haldol] Adverse Reaction (Verified 11/01/16 18:04) lithium Adverse Reaction (Verified 11/01/16 18:04) paroxetine [From Paxil] Adverse Reaction (Verified 11/01/16 18:04) trazodone Adverse Reaction (Verified 11/01/16 18:04) Home Medications: Ambulatory Orders Metoprolol Tartrate [Lopressor] 50 mg PO BID 09/28/14 Esomeprazole Magnesium [Nexium] 40 mg PO DAILY 01/13/16 Atorvastatin Calcium [Lipitor] 80 mg PO DAILY 04/20/16 Levothyroxine Sodium [Synthroid] 25 mcg PO QDAC #30 tablet 05/11/16 Metformin HCl [Glucophage] 500 mg PO BIDWM 05/11/16 Hydrocodone Bit/Acetaminophen [[place] 7.5-325] 1 tab PO TID 08/23/16 Losartan Potassium [Cozaar] 50 mg PO DAILY 08/23/16 Tizanidine HCl 4 mg PO BID 08/23/16 Clonidine HCl 0.2 mg PO BEDTIME 08/31/16 Dextroamphetamine/Amphetamine [Adderall 15 Mg Tablet] 15 mg PO BID #60 Prednisone 10 mg PO BIDWM #14 tablet 11/17/16 Disposition Discussed With: Patient
[2016-11-17] MEDS: ASPIRIN CHEWABLE PO STA (13:16)
[2016-11-17 13:25] LABS: BASOPHILS # (AUTO) 0.1 K/uL (0-0.2); BASOPHILS % (AUTO) 1.2 % (0.0-3.0); EOSINOPHILS # (AUTO) 0.1 K/ul (0.0-0.7); EOSINOPHILS % (AUTO) 2.8 % (0.0-7.0); HEMATOCRIT 29.9 % (37.0-47.0); HEMOGLOBIN 9.7 g/dl (12.0-16.0); LYMPHOCYTES # (AUTO) 2.2 K/uL (0.60-3.4); LYMPHOCYTES % (AUTO) 50.8 (10.0-50.0); MEAN CORPUSCULAR HEMOGLOBIN 28.4 pg (27.0-31.0); MEAN CORPUSCULAR HGB CONC 32.4 (31.8-35.4); MEAN CORPUSCULAR VOLUME 87.7 fl (81.0-99.0); MONOCYTES # (AUTO) 0.3 K/uL (0.4-2.0); MONOCYTES % (AUTO) 6.1 (0-10); NEUTROPHILS # (AUTO) 1.7 K/ul (2.0-6.9); NEUTROPHILS % (AUTO) 39.1; PLATELET COUNT 229 10^3/uL (140-440); RED BLOOD COUNT 3.41 10^6/ul (4.20-5.40); WHITE BLOOD COUNT 4.25 K/ul (4.6-10.2)
[2016-11-17 13:50] LABS: ALANINE AMINOTRANSFERASE 21 U/L (12-78); ALBUMIN 3.9 g/dL (3.4-5.0); ALBUMIN/GLOBULIN RATIO 1.34; ALKALINE PHOSPHATASE 40 U/L (53-141); ASPARTATE AMINO TRANSFERASE 25 U/L (15-37); BILIRUBIN,TOTAL 0.29 mg/dL (0.00-1.20); BLOOD UREA NITROGEN 18 mg/dL (7-18); BUN/CREATININE RATIO 16.98; CALCIUM 9.3 mg/dL (8.2-10.2); CARBON DIOXIDE 22 mmol/L (21-32); CHLORIDE 110 mmol/L (98-107); CREATINE KINASE 54 U/L; CREATININE 1.06 mg/dL (0.60-1.30); GLUCOSE 132 mg/dL (70-110); SODIUM 143 mmol/L (136-145); TOTAL PROTEIN 6.8 g/dL (6.4-8.2)
--- NOTE | 2016-11-17 13:51 | CT ---
EXAM: CT scan of the cervical spine without contrast HISTORY: Pain, tingling left arm TECHNIQUE: Imaging of the cervical spine was performed without contrast. Sagittal and coronal luis nstructions and axial image images were provided for interpretation. FINDINGS: The occipital condyles, C1 ring appear intact. The occipital condyles, summary appear in tact. No acute abnormalities are seen within the odontoid process and C2 vertebral body. The spino us processes are intact. The prevertebral soft tissues are normal. Segmental analysis: Suggested three: The central canal and neural foramina appear patent. C3-C4: The central canal appears patent. There is mild narrowing of the left neural foramen second pamela to uncinate and facet joint degeneration. The right neural foramen appears patent. C4-C5: There is uncovertebral joint and facet joint degeneration resulting in mild left foraminal s tenosis. There is mild narrowing of the right neural foramen. There is mild stenosis of the centra l canal. The thecal sac measures 8.5 mm AP. C5-C6: There is cervical spondylosis and enlargement of the posterior ligament flavum resulting in moderate central canal stenosis. The thecal sac measures 6.6 mm AP. There is uncovertebral joint a nd facet joint degeneration resulting in moderate to severe left and moderate right foraminal stenos is. C6-C7: The central canal appears patent. There is uncovertebral joint and facet joint degeneration resulting in bilateral mild to moderate foraminal stenosis. C7-T1: The central canal and neural foramina appear adequately patent. There is mild left facet dwaine int arthropathy. IMPRESSION: There is mild degenerative disc disease and cervical spondylosis seen most severe at th e C5-C6 disc space resulting in moderate central canal stenosis seen at C5-C6. There is a milder degree of central canal stenosis also seen at the C4-C5 disc space. Multilevel foraminal stenosis seen throughout the cervical spine secondary to uncovertebral joint an d facet joint degeneration. The findings are most severe at the C5-C6 disc space, left greater than right. No acute fractures are seen within the cervical spine.
--- NOTE | 2016-11-17 13:52 | CT ---
EXAM: CT Head HISTORY: Left-sided tingling COMPARISON: 05/09/2016 TECHNIQUE: CT head performed without contrast FINDINGS: There is no mass effect, midline shift, or intracranial hemmorhage. Siddiqui white different iation is preserved. There is no extra-axial collection. The ventricles, sulci, and basal cisterns are patent and symmetric. Mild cerebral atrophy. There is no depressed calvarial fracture. The ma stoid air cells are clear. The visualized paranasal sinuses are clear. There are postsurgical change s about the left orbital region.. Mild intracranial atherosclerotic vascular calcification. IMPRESSION: 1. No acute intracranial abnormality. 2. Mild cerebral atrophy
== END 2016-11-17 14:13 | disposition home or self-care (01) ==
LOC: ED 12:46
DX: M54.12 Radiculopathy, cervical region (principal); R07.9 Chest pain, unspecified; I10 Essential (primary) hypertension; Z86.73 Personal history of transient ischemic attack (TIA), and cerebral infarction without residual deficits; Z87.81 Personal history of (healed) traumatic fracture
CPT/HCPCS: 36415; 80053; 82550; 84484; 85025; 93005; 93010; 99283

== ENCOUNTER 2016-11-27 08:55 | Outpatient (CLI) | payer OTHER ==
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
== END 2016-11-27 08:56 | disposition home or self-care (01) ==
LOC: RAD 08:55
PROVIDERS: ATTEND Emergency Medicine
DX: M54.12 Radiculopathy, cervical region (principal)

== ENCOUNTER 2016-12-20 12:56 | Outpatient (CLI) ==
[2016-12-20 13:13] LABS: BASOPHILS % (AUTO) 0.9 % (0.0-3.0); EOSINOPHILS # (AUTO) 0.1 K/ul (0.0-0.7); EOSINOPHILS % (AUTO) 2.6 % (0.0-7.0); HEMATOCRIT 31.8 % (37.0-47.0); HEMOGLOBIN 10.3 g/dl (12.0-16.0); IMMATURE GRANULOCYTE % (AUTO) 0.2 % (0.0-5.0); LYMPHOCYTES % (AUTO) 46.9 (10.0-50.0); MEAN CORPUSCULAR HEMOGLOBIN 29.5 pg (27.0-31.0); MEAN CORPUSCULAR HGB CONC 32.4 (31.8-35.4); MEAN CORPUSCULAR VOLUME 91.1 fl (81.0-99.0); MONOCYTES # (AUTO) 0.2 K/uL (0.4-2.0); MONOCYTES % (AUTO) 5.1 (0-10); NEUTROPHILS # (AUTO) 1.9 K/ul (2.0-6.9); NEUTROPHILS % (AUTO) 44.3; PLATELET COUNT 256 10^3/uL (140-440); RED BLOOD COUNT 3.49 10^6/ul (4.20-5.40); WHITE BLOOD COUNT 4.29 K/ul (4.6-10.2)
[2016-12-20 13:22] LABS: ALBUMIN 4.3 g/dL (3.4-5.0); ALBUMIN/GLOBULIN RATIO 1.48; ANION GAP 15.6; BILIRUBIN,TOTAL 0.36 mg/dL (0.00-1.20); BUN/CREATININE RATIO 17.05; CALCIUM 10.4 mg/dL (8.2-10.2); CREATININE 1.29 mg/dL (0.60-1.30); POTASSIUM 4.6 mmol/L (3.5-5.10); TOTAL PROTEIN 7.2 g/dL (5.8-8.1)
== END 2016-12-20 12:57 | disposition home or self-care (01) ==
LOC: LAB 12:56
PROVIDERS: ATTEND Emergency Medicine
DX: I10 Essential (primary) hypertension (principal); Z87.19 Personal history of other diseases of the digestive system
CPT/HCPCS: 36415; 80053; 85025

== ENCOUNTER 2017-02-11 00:12 | Outpatient (CLI) | payer OTHER | END 2017-02-11 00:13 | disposition home or self-care (01) | LOC: AMBL 00:12 | PROVIDERS: ATTEND Internal Medicine Geriatric Medicine | DX: S99.912A Unspecified injury of left ankle, initial encounter (principal); W19.XXXA Unspecified fall, initial encounter ==

== ENCOUNTER 2017-02-13 06:35 | Outpatient (CLI) | payer OTHER ==
[2017-02-13] MEDS: DOBUTAMINE 250 ML IV ONE (08:33)
[2017-02-13] MEDS: ATROPINE SULFATE PFS ONE (08:43)
--- NOTE | 2017-02-13 10:03 | NM ---
EXAM: Myocardial perfusion imaging HISTORY: Presurgical evaluation COMPARISON: None. TECHNIQUE: Patient was first injected 4 mCi of thallium 201 chloride intravenously while at rest. S PECT imaging of the heart was acquired. Patient was subsequently stressed using dobutamine protocol and injected 25.1 mCi of Tc99m Sestamibi intravenously. Another SPECT imaging of the heart was per formed. Gated cardiac study was also acquired. FINDINGS: Post stress images show normal left ventricular cavity size. Radioisotope distribution is homogeneous in the left ventricle myocardium. No evidence of dobutamine-induced reversible ischemi a. No fixed defect is seen. Left ventricular ejection fraction is 59%. Wall motion is normal. IMPRESSION: 1. SPECT myocardial imaging at stress and rest is normal. 2. Normal cardiac systolic function and normal wall motion
--- NOTE | 2017-02-14 09:54 | ECHOSTRESS ---
Date of Exam: 02/13/17 Ordering Physician: SATISH PATEL Reason for Echo: SURGICAL CLEARANCE, DM, HYPERTENSION, SOB, TIA, DOBUTAMINE STRESS TEST--NO ISCHEMIA M-Mode Normal Adult Results LV Dimensions Normal Adult Results AoV Opening excursions >1.6 LVEDD-base- 3.5-5.8 Ao root dimensions 2.0-3.7 LVESD-base- 3.1-4.6 L. Atrium dimensions 1.9-3.8 Post. Wall thickness 0.8-1.1 IV septum (thickness) 0.7-1.2 Post. Wall excursion 0.72-1.3 Septal motion Systolic motion R. Ventricular cavity 1.5-2.0 LVEF 60% Paradoxical septal wall motion 2-D: NORMAL LEFT VENTRICULAR CONTRACTILITY--RESTING AND WITH DOBUTAMINE INFUSION M-MODE: MV: AV: TV: PV: CHAMBER SIZE: WALL MOTION: NORMAL LEFT VENTRICULAR CONTRACTILITY--RESTING AND WITH DOBUTAMINE INFUSION PERICARDIUM: INTERPRETATION: 1. NORMAL LEFT VENTRICULAR CONTRACTILITY--RESTING AND WITH DOBUTAMINE INFUSION MTDD
== END 2017-02-13 06:36 | disposition home or self-care (01) ==
LOC: CAR 06:35
PROVIDERS: ATTEND Emergency Medicine
DX: Z01.818 Encounter for other preprocedural examination (principal); E11.9 Type 2 diabetes mellitus without complications; G45.9 Transient cerebral ischemic attack, unspecified; I10 Essential (primary) hypertension; R06.02 Shortness of breath

== ENCOUNTER 2017-06-05 17:39 | Emergency (ER) ==
[2017-06-05 17:47] VITALS: BMI 25.7
[2017-06-05] MEDS ORDERED: VASOTEC IV IVP STA (18:50)
[2017-06-05] MEDS ORDERED: TRANDATE IVP STA (18:50)
[2017-06-05 19:04] LABS: BASOPHILS # (AUTO) 0.1 K/uL (0-0.2); BASOPHILS % (AUTO) 0.9 % (0.0-3.0); EOSINOPHILS # (AUTO) 0.1 K/ul (0.0-0.7); EOSINOPHILS % (AUTO) 2.1 % (0.0-7.0); HEMATOCRIT 37.1 % (37.0-47.0); IMMATURE GRANULOCYTE % (AUTO) 0.1 % (0.0-5.0); LYMPHOCYTES # (AUTO) 3.1 K/uL (0.60-3.4); LYMPHOCYTES % (AUTO) 46.2 (10.0-50.0); MEAN CORPUSCULAR HEMOGLOBIN 28.2 pg (27.0-31.0); MEAN CORPUSCULAR HGB CONC 32.3 (31.8-35.4); MEAN CORPUSCULAR VOLUME 87.1 fl (81.0-99.0); MONOCYTES # (AUTO) 0.3 K/uL (0.4-2.0); MONOCYTES % (AUTO) 4.8 (0-10); NEUTROPHILS # (AUTO) 3.1 K/ul (2.0-6.9); NEUTROPHILS % (AUTO) 45.9; PLATELET COUNT 265 10^3/uL (140-440); RED BLOOD COUNT 4.26 10^6/ul (4.20-5.40); WHITE BLOOD COUNT 6.67 K/ul (4.6-10.2)
[2017-06-05 19:31] LABS: ALANINE AMINOTRANSFERASE 7 U/L (12-78); ALBUMIN/GLOBULIN RATIO 1.03; ALKALINE PHOSPHATASE 81 U/L (53-141); ANION GAP 17.1; ASPARTATE AMINO TRANSFERASE 12 U/L (15-37); BILIRUBIN,TOTAL 0.17 mg/dL (0.00-1.20); BLOOD UREA NITROGEN 31 mg/dL (7-18); BUN/CREATININE RATIO 20.12; CALCIUM 9.8 mg/dL (8.2-10.2); CARBON DIOXIDE 23 mmol/L (23-31); CHLORIDE 107 mmol/L (98-107); CREATINE KINASE 58 U/L; CREATININE 1.54 mg/dL (0.60-1.30); GLUCOSE 119 mg/dL (82-115); POTASSIUM 4.1 mmol/L (3.5-5.10); SODIUM 143 mmol/L (136-145); TOTAL PROTEIN 7.9 g/dL (5.8-8.1)
[2017-06-05 19:39] LABS: BILIRUBIN,URINE 1+ (NEGATIVE); KETONES,URINE Trace (NEGATIVE); LEUKOCYTE ESTERASE ,URINE 1+ (NEGATIVE); NITRITE,URINE Negative (NEGATIVE); PH,URINE 5.5 (5-9); PROTEIN,URINE Negative (NEGATIVE); URINE, BLOOD Negative (NEGATIVE)
[2017-06-05 19:45] LABS: ADD URINE MICROSCOPIC YES
[2017-06-05 19:46] LABS: BACTERIA,URINE TRACE (NOT PRESENT)
[2017-06-05] MEDS ORDERED: NORCO 7.5-325 PO STA (20:06)
--- NOTE | 2017-06-05 20:23 | ED.PDOC ---
General ED Provider: Dr. ALEX SNELL-ER Chief Complaint: Hypertension Stated Complaint: my bp has been up--no coombs or chest pain Time Seen by Physician: 18:45 Mode of Arrival: Walk-In Information Source: Patient Exam Limitations: No limitations Primary Care Provider: SATISH [facility] Nursing and Triage Documentation Reviewed and Agree: Yes Cardiovascular Complaint Exam - Hypertension Complaint/Exam Onset/Duration: 2-3 days Symptoms Are: Resolved Timing: Constant Reported B/P Prior to Arrival: 210/110 Aggravating: Reports: None Alleviating: Reports: None Associated Signs and Symptoms: Reports: Anxiety, Recent stress. Denies: Chest pain, Vision changes, Headache, Numbness, Tingling, Weakness, Dizziness, Short of air, Swelling Recent Change in Medications: No A/V [place]: No Papilledema Present: No JVD Present: No Carotid Bruit Present: No Femoral Pulses Bounding: No Differential Diagnoses: Hypertension Quality Indicator For Non-Traumatic Chest Pain/Syncope: EKG Performed Review of Systems - Review Of Systems Constitutional: Reports: No symptoms Eyes: Reports: No symptoms Ears, Nose, Mouth, Throat: Reports: No symptoms Respiratory: Reports: No symptoms Cardiac: Reports: No symptoms GI: Reports: No symptoms : Reports: No symptoms Musculoskeletal: Reports: No symptoms Skin: Reports: No symptoms Neurological: Reports: No symptoms, Anxiety Endocrine: Reports: No symptoms Hematologic/Lymphatic: Reports: No symptoms All Other Systems: Reviewed and Negative Past Medical History - Past Medical History Previously Healthy: Yes Endocrine: Reports: None, DM 2 Cardiovascular: Reports: Hypertension Respiratory: Reports: COPD Hematological: Reports: Anemia Gastrointestinal: Reports: None Genitourinary: Reports: None Neuro/Psych: Reports: TIA, Anxiety, Depression, Bipolar Disorder Musculoskeletal: Reports: Back Pain (PREVIOUS BACK FRACTURES) Cancer: Reports: None Last Menstrual Period: menpause Other Pertinent Past Medical History: BACK SURGERY TO REPAIR FRACTURES. - Surgical History General Surgical History: Reports: Orthopedic (BACK SURGERY TO REPAIR FRACTURES) , Back Surgery (BACK SURGERY TO REPAIR FRACTURES.). Denies: Tubal ligation ( left ovary removed) - Family History Family History: Reports: Unknown - Social History Smoking Status: Never smoker Hx Substance Use: No Alcohol Screening: None Physical Exam - Physical Exam Appearance: Well-appearing, No pain distress, Well-nourished Eyes: ONIEL, EOMI, Conjunctiva clear ENT: Ears normal, Nose normal, Oropharynx normal Neck: Supple Respiratory: Airway patent, Breath sounds clear, Breath sounds equal, Respirations nonlabored Cardiovascular: RRR, Pulses normal, No rub, No murmur GI/: Soft, Nontender, No masses, Bowel sounds normal, No Organomegaly Musculoskeletal: Normal strength, ROM intact, No edema, No calf tenderness Skin: Warm, Dry, Normal color Neurological: Sensation intact, Motor intact, Reflexes intact, Cranial nerves intact, Alert, Oriented Psychiatric: Affect appropriate, Mood appropriate Interpretation - EKG Interpretation Time of EKG #1: 20:23 Rate: Normal Rhythm: Sinus Ectopy: None [place]: NL ST Segment: Normal Interpretation: nsr Re-Evaluation - Re-Evaluation Time of Re-Evaluation: 20:23 Status: Improved Vital Signs Stable: Yes Pain Level: 0 Appearance: NAD Lungs: Clear Skin: Warm and Dry Neuro: Alert and Oriented X3 CV: RRR Critical Care Note - Critical Care Note Total Time (mins): 0 Course - Course Hematology/Chemistry: 06/05/17 19:03 06/05/17 19:03 Orders, Labs, Meds: Lab Review 06/05/17 06/05/17 06/05/17 18:50 19:03 19:03 WBC 6.67 RBC 4.26 Hgb 12.0 Hct 37.1 MCV 87.1 MCH 28.2 MCHC 32.3 RDW Coeff of Kwame 13.8 Plt Count 265 Immature Gran % (Auto) 0.1 Neut % (Auto) 45.9 Lymph % (Auto) 46.2 [place] % (Auto) 4.8 Eos % (Auto) 2.1 Baso % (Auto) 0.9 Immature Gran # (Auto) 0.0 Neut # 3.1 Lymph # 3.1 [place] # 0.3 L Eos # 0.1 Baso # 0.1 Sodium 143 Potassium 4.1 Chloride 107 Carbon Dioxide 23 Anion Gap 17.1 BUN 31 H Creatinine 1.54 H Estimated GFR (MDRD) 34.00 BUN/Creatinine Ratio 20.12 Glucose 119 H Calcium 9.8 Total Bilirubin 0.17 AST 12 L ALT 7 L Alkaline Phosphatase 81 Total Creatine Kinase 58 Troponin I < 0.0100 Total Protein 7.9 Albumin 4.0 Globulin 3.9 Albumin/Globulin Ratio 1.03 Urine Color Yellow Urine Clarity Slightly Urine pH 5.5 Ur Specific [place] 1.020 Urine Protein Negative Urine Glucose (UA) Negative Urine Ketones Trace Urine Blood Negative Urine Nitrite Negative Urine Bilirubin 1+ Urine Urobilinogen 0.2 Ur Leukocyte Esterase 1+ Urine Microscopic RBC 0-2 Urine Microscopic WBC 0-2 Ur Squamous Epith Cells 0-2 Urine Bacteria Trace Hyaline Casts 0-2 Orders Category Date Time Status EKG-(ED ONLY) Stat CARDIO 06/05/17 18:49 Completed Oral Hygienist [ED CHICKEN FANCIER APPLIED] .ONCE EMERGENCY 06/05/17 18:50 Active IV [ED IV/MEDIPORT/POWERPORT] .ONCE EMERGENCY 06/05/17 18:50 Active CBC W/ AUTO DIFF Stat LAB 06/05/17 19:03 Completed COMPREHENSIVE METABOLIC PANEL Stat LAB 06/05/17 19:03 Completed CREATINE KINASE Stat LAB 06/05/17 19:03 Completed TROPONIN I Stat LAB 06/05/17 19:03 Completed URINALYSIS C & S IF INDICATED Stat LAB 06/05/17 18:50 Completed 0.9 % Sodium Chloride [Saline Flush] MEDS 06/05/17 18:50 Ordered 1 syr IVF PRN PRN Enalaprilat Dihydrate [Vasotec IV] MEDS 06/05/17 18:50 Discontinued 5 mg IVP ONCE STA Hydrocodone Bit/Acetaminophen [Percy 7.5-325] MEDS 06/05/17 20:06 Stat 1 tab PO ONCE STA Labetalol HCl [Trandate] MEDS 06/05/17 18:50 Discontinued 20 mg IVP ONCE STA Medications Generic Name Dose Route Start Last Admin Trade Name Freq PRN Reason Stop Dose Admin Sodium Chloride 1 syr 06/05/17 18:50 06/05/17 20:07 Saline Flush IVF 1 syr PRN PRN Administration To flush IV Discontinued Medications Generic Name Dose Route Start Last Admin Trade Name Freq PRN Reason Stop Dose Admin Acetaminophen/Hydrocodone Bitart 1 tab 06/05/17 20:06 06/05/17 20:11 Percy 7.5-325 PO 06/05/17 20:07 1 tab ONCE STA Administration Enalaprilat 5 mg 06/05/17 18:50 06/05/17 19:35 Vasotec Iv IVP 06/05/17 18:51 5 mg ONCE STA Administration Labetalol HCl 20 mg 06/05/17 18:50 06/05/17 20:06 Trandate IVP 06/05/17 18:51 20 mg ONCE STA Administration Vital Signs: Temp Pulse Resp BP Pulse Ox 06/05/17 20:19 156/91 H 06/05/17 20:06 164/114 H 06/05/17 19:52 168/96 H 06/05/17 19:30 73 16 179/110 H 99 06/05/17 17:40 100.2 F H 78 16 166/96 H 97 LEONCIO Risk Score LEONCIO Risk Score: Risk Score Odds of by 30D 0 0.1 (0.1-0.2) 1 0.3 (0.2-0.3) 2 0.4 (0.3-0.5) 3 0.7 (0.6-0.9) 4 1.2 (1.0-1.5) 5 2.2 (1.9-2.6) 6 3.0 (2.5-3.6) 7 4.8 (3.8-6.1) Departure - Departure Time of Disposition: 20:25 Disposition: HOME SELF-CARE Discharge Problem: HTN (hypertension) Qualifiers: Hypertension type: unspecified Qualified Code(s): I10 - Essential (primary) hypertension Instructions: Chronic Hypertension (ED) Condition: Fair Pt referred to PMD for follow-up: Yes Additional Instructions: increase clonidine to 0.2mg tid ---monitor bp--d/w with your pcp your abnormal kidney labs Allergies/Adverse Reactions: Allergies amitriptyline [From Elavil] Adverse Reaction (Verified 06/05/17 17:49) amoxicillin Adverse Reaction (Verified 06/05/17 17:49) bupropion [From Wellbutrin] Adverse Reaction (Verified 06/05/17 17:49) chlorpromazine [From Thorazine] Adverse Reaction (Verified 06/05/17 17:49) divalproex sodium [From Depakote] Adverse Reaction (Verified 06/05/17 17:49) fluoxetine [From Prozac] Adverse Reaction (Verified 06/05/17 17:49) haloperidol [From Haldol] Adverse Reaction (Verified 06/05/17 17:49) lithium Adverse Reaction (Verified 06/05/17 17:49) paroxetine [From Paxil] Adverse Reaction (Verified 06/05/17 17:49) trazodone Adverse Reaction (Verified 06/05/17 17:49) Home Medications: Ambulatory Orders Atorvastatin Calcium [Lipitor] 80 mg PO DAILY 04/20/16 Hydrocodone Bit/Acetaminophen [Percy 7.5-325] 1 tab PO TID 08/23/16 Tizanidine HCl 4 mg PO BID 08/23/16 Melatonin/Pyridoxine HCl (B6) [Melatonin 3 Mg Tablet] 1 each PO DAILY 30 Days # 30 04/25/17 Disposition Discussed With: Patient
[2017-06-05 20:42] VITALS: BP 158/92; TEMP 99.4
== END 2017-06-05 20:39 | disposition home or self-care (01) ==
LOC: ED 17:39
DX: I10 Essential (primary) hypertension (principal); E11.9 Type 2 diabetes mellitus without complications; F41.9 Anxiety disorder, unspecified; M54.9 Dorsalgia, unspecified; Z86.73 Personal history of transient ischemic attack (TIA), and cerebral infarction without residual deficits
CPT/HCPCS: 36415; 80053; 81001; 82550; 84484; 85025; 93005; 93010; 96374; 96375; 99284

== ENCOUNTER 2017-06-13 13:16 | Outpatient (CLI) | payer OTHER ==
[2017-06-13 13:28] LABS: BASOPHILS # (AUTO) 0.1 K/uL (0-0.2); BASOPHILS % (AUTO) 1.2 % (0.0-3.0); EOSINOPHILS # (AUTO) 0.1 K/ul (0.0-0.7); EOSINOPHILS % (AUTO) 1.9 % (0.0-7.0); HEMATOCRIT 36.3 % (37.0-47.0); HEMOGLOBIN 11.2 g/dl (12.0-16.0); IMMATURE GRANULOCYTE % (AUTO) 0.2 % (0.0-5.0); LYMPHOCYTES # (AUTO) 1.6 K/uL (0.60-3.4); LYMPHOCYTES % (AUTO) 38.1 (10.0-50.0); MEAN CORPUSCULAR HEMOGLOBIN 27.9 pg (27.0-31.0); MEAN CORPUSCULAR HGB CONC 30.9 (31.8-35.4); MEAN CORPUSCULAR VOLUME 90.3 fl (81.0-99.0); MONOCYTES # (AUTO) 0.3 K/uL (0.4-2.0); MONOCYTES % (AUTO) 7.8 (0-10); NEUTROPHILS # (AUTO) 2.2 K/ul (2.0-6.9); NEUTROPHILS % (AUTO) 50.8; PLATELET COUNT 248 10^3/uL (140-440); RED BLOOD COUNT 4.02 10^6/ul (4.20-5.40); WHITE BLOOD COUNT 4.25 K/ul (4.6-10.2)
[2017-06-13 14:46] LABS: ALANINE AMINOTRANSFERASE 20 U/L (12-78); ALBUMIN 3.8 g/dL (3.4-5.0); ALKALINE PHOSPHATASE 71 U/L (53-141); ANION GAP 12.7; ASPARTATE AMINO TRANSFERASE 24 U/L (15-37); BILIRUBIN,TOTAL < 0.3 mg/dL (0.00-1.20); BLOOD UREA NITROGEN 18 mg/dL (7-18); BUN/CREATININE RATIO 16.98; CALCIUM 9.8 mg/dL (8.2-10.2); CARBON DIOXIDE 25 mmol/L (23-31); CHLORIDE 110 mmol/L (98-107); CHOL/HDL RATIO 7.3 (4.5-5.5); CHOLESTEROL 205 mg/dL (0-200); CREATININE 1.06 mg/dL (0.60-1.30); GLUCOSE 88 mg/dL (82-115); HDL CHOLESTEROL 28 mg/dL (35-80); POTASSIUM 4.7 mmol/L (3.5-5.10); SODIUM 143 mmol/L (136-145); TOTAL PROTEIN 7.6 g/dL (5.8-8.1); TRIGLYCERIDES 292 mg/dL (30-150); VLDL CHOLESTEROL 58 mg/dL (2-30)
== END 2017-06-13 13:17 | disposition home or self-care (01) ==
LOC: LAB 13:16
PROVIDERS: ATTEND Emergency Medicine
DX: E11.9 Type 2 diabetes mellitus without complications (principal); I10 Essential (primary) hypertension; K76.0 Fatty (change of) liver, not elsewhere classified; F41.8 Other specified anxiety disorders
CPT/HCPCS: 36415; 80053; 80061; 83036; 84443; 85025

== ENCOUNTER 2017-08-15 10:53 | Inpatient (IN) ==
[2017-08-15] MEDS ORDERED: DECADRON 4 MG/ML SDV IVP STA (11:29)
[2017-08-15] MEDS ORDERED: LOVENOX SUBCUT SCH (11:30)
[2017-08-15] MEDS ORDERED: NON-FORMULARY MEDICATION (Amlodipine Besylate [Norvasc] 10 MG) PO SCH (12:00)
[2017-08-15] MEDS: LOVENOX SUBCUT SCH ×2 (13:56→20:51)
[2017-08-15] MEDS: NORVASC PO SCH (14:03)
[2017-08-15] MEDS: DUONEB NEB SCH ×2 (14:05→22:20)
--- NOTE | 2017-08-15 14:11 | CT ---
EXAM: CTA CHEST (PE PROTOCOL) HISTORY: Chest pain TECHNIQUE: CTA chest with intravenous contrast. Multiplanar images were provided with 3-D reconstru ctions. 100 mL Omnipaque. COMPARISON: 08/23/2016 FINDINGS: No pulmonary arterial filling defect. Thoracic aorta is within normal limits. Normal heart size wit h no pericardial effusion. There is some motion artifact. There is a calcified granuloma in the anterior right upper lobe measu ring about a centimeter. No vascular congestion, definite central interstitial edema, pneumothorax, consolidated pneumonia or pleural fluid. The bones reveal stabilization hardware at the cervical and lumbar levels. Mild enlargement of the le ft thyroid lobe is unchanged. IMPRESSION: 1. No pulmonary arterial thromboembolism. 2. Some motion artifact although no obvious consolidated pneumonia or pulmonary edema. 3. Mildly enlarged left thyroid lobe is stable.
[2017-08-15] MEDS: NORCO 7.5-325 PO SCH ×2 (14:36→20:36)
[2017-08-15] MEDS: NEURONTIN PO SCH ×2 (14:36→20:36)
[2017-08-15] MEDS: CATAPRES PO SCH ×2 (14:37→20:36)
[2017-08-15] MEDS ORDERED: NON-FORMULARY MEDICATION (Clonidine Hcl [Clonidine Hcl] 0.2 MG) PO SCH (15:00)
[2017-08-15] MEDS: LOPRESSOR PO SCH (16:41)
[2017-08-15] MEDS: ZANTAC PO SCH (16:41)
[2017-08-15] MEDS ORDERED: GLUCOPHAGE PO SCH (17:30)
[2017-08-15] MEDS: PROTONIX PO SCH (17:36)
[2017-08-15] MEDS ORDERED: TRIGLIDE PO SCH (21:00)
[2017-08-16] MEDS ORDERED: NORCO 7.5-325 PO STA (01:41)
[2017-08-16 02:08] VITALS: TEMP 97.6
[2017-08-16] MEDS: DUONEB NEB SCH ×2 (05:15→14:07)
[2017-08-16] MEDS: PROTONIX PO SCH (05:38)
[2017-08-16] MEDS: ZANTAC PO SCH (05:38)
[2017-08-16] MEDS ORDERED: SYNTHROID PO SCH (06:30)
[2017-08-16] MEDS ORDERED: LIPITOR PO SCH ×2 (09:00)
[2017-08-16] MEDS ORDERED: HYDROCHLOROTHIAZIDE PO SCH (09:00)
[2017-08-16] MEDS ORDERED: NON-FORMULARY MEDICATION (Hydrochlorothiazide [Hydrochlorothiazide] 12.5 MG) PO SCH (09:00)
[2017-08-16] MEDS: NORCO 7.5-325 PO SCH ×2 (09:43→14:54)
[2017-08-16] MEDS: CATAPRES PO SCH ×2 (09:43→14:54)
[2017-08-16] MEDS: NEURONTIN PO SCH ×2 (09:43→14:53)
[2017-08-16] MEDS: LOVENOX SUBCUT SCH (09:44)
[2017-08-16] MEDS: LOPRESSOR PO SCH (09:44)
[2017-08-16] MEDS: NORVASC PO SCH (13:20)
[2017-08-16 14:46] VITALS: BP 135/81
--- NOTE | 2017-09-20 14:27 | DS ---
DATE OF SERVICE: 08/16/17 FINAL DIAGNOSIS: 1. Chest pain from pleurisy and bronchitis, noncardiac and negative PE mostly from the peptic ulcer or GERD 2. Elevated D-Dimer 3. Status post left lumbar hernia repair, 07/30/17 4. Ruptured left ear drum 5. History of eye surgery 6. 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 TIA 8. CAD 9. Hypertension 10. Chronic bronchitis 11.GERD 12.Peptic ulcer disease 13Chronic kidney failure 14.Status post tubal ligation. 15.Back surgery 16.Diabetes 17.Hypothyroidism 18.Bipolar 19.Depression 20.Anxiety DISCHARGE INSTRUCTIONS: Discharge patient home. Please take iron pills two times a day. Continue the rest of the home medications. Followup with [facility] within 5-7 days. MEDICATIONS AT DISCHARGE: Norvasc Lipitor Clonidine Triglide Neurontin Hydrochlorothiazide [place] Levothyroxine Metformin Metoprolol Zantac Rosuvastatin NEW PRESCRIPTIONS: Keflex 500mg twice a day Prednisone 5mg twice a day Protonix 40mg PO daily Iron Tablets DIET INSTRUCTIONS: Cardiac and healthy ACTIVITY: As much as tolerated SMOKING: Never smoker DISEASE SPECIFIC EDUCATION: Anemia from the surgery been discussed and advised to take the iron pills. HOSPITAL COURSE: Khushbu Sheikh who recently had a left lumbar hernia surgery 08/01/17, the patient came to the office with chest pain, shortness of breath and coughing and congestion. With the given recently risk for the PE the patient was admitted to the hospital. Initial WBC normal, hgb is 8.6, D-dimer was 985, CT with the PE protocol was done which did not show any acute PE. The patient was given Decadron and started feeling better did not have any problems. At that time the patient being discharged home as the patient did have any PE and was clinically stable. Mostly likely the chest pain was assumed to be pleuritic pain and acid reflux. The patient was advised to take antibiotics, steroids and the Protonix for the possible peptic ulcer disease and iron pills. We will be seeing the patient within one week in the office. We will recheck the CBC and CMP. TIME SPENT: MORE THAN 60 MINUTES MTDD
== END 2017-08-16 15:58 | disposition home or self-care (01) | DRG 203 ==
LOC: MEDSURG B 10:53
PROVIDERS: ADMIT Emergency Medicine; ATTEND Emergency Medicine
DX: J20.9 Acute bronchitis, unspecified (principal); R09.1 Pleurisy; K21.9 Gastro-esophageal reflux disease without esophagitis; R79.1 Abnormal coagulation profile; J44.9 Chronic obstructive pulmonary disease, unspecified; G47.00 Insomnia, unspecified; I25.10 Atherosclerotic heart disease of native coronary artery without angina pectoris; I10 Essential (primary) hypertension; K27.9 Peptic ulcer, site unspecified, unspecified as acute or chronic, without hemorrhage or perforation; I12.9 Hypertensive chronic kidney disease with stage 1 through stage 4 chronic kidney disease, or unspecified chronic kidney disease; N18.9 Chronic kidney disease, unspecified; E11.22 Type 2 diabetes mellitus with diabetic chronic kidney disease; E03.9 Hypothyroidism, unspecified; F31.9 Bipolar disorder, unspecified; F41.8 Other specified anxiety disorders; H72.92 Unspecified perforation of tympanic membrane, left ear; Z98.51 Tubal ligation status; Z86.73 Personal history of transient ischemic attack (TIA), and cerebral infarction without residual deficits; Z79.899 Other long term (current) drug therapy; Z98.890 Other specified postprocedural states; Z79.84 Long term (current) use of oral hypoglycemic drugs
CPT/HCPCS: 36415; 80053; 82550; 82607; 82728; 82746; 83540; 83550; 84466; 84484; 85025; 85045; 85379; 93005; 93010; 94640

== ENCOUNTER 2018-02-18 09:55 | Outpatient (CLI) | payer OTHER | END 2018-02-18 09:56 | disposition home or self-care (01) | LOC: RHC-LAB 09:55 | PROVIDERS: ATTEND Emergency Medicine | DX: I10 Essential (primary) hypertension (principal); K76.0 Fatty (change of) liver, not elsewhere classified; F41.8 Other specified anxiety disorders | CPT/HCPCS: 36415; 80053; 80061; 84443; 85025 ==

== ENCOUNTER 2018-03-29 17:53 | Emergency (ER) ==
[2018-03-29 18:03] VITALS: BP 175/98; TEMP 97.6; BMI 26.2
--- NOTE | 2018-03-29 18:46 | ED.PDOC ---
General ED Provider: Dr. ALEX SNELL-ER Chief Complaint: Psychiatric Complaint Stated Complaint: jose got hair [id number] out of my ears, my eyes, and my mouth Time Seen by Physician: 17:55 Mode of Arrival: Walk-In Information Source: Patient Exam Limitations: No limitations Primary Care Provider: BARBARA MOLINA Nursing and Triage Documentation Reviewed and Agree: Yes Does patient meet sepsis criteria?: No System Inflammatory Response Syndrome: Not Applicable Sepsis Protocol: For patient's 13 years and over: Temp is 96.8 and below OR 101 and greater Pulse >90 BPM Resp >20/minute Acutely Altered Mental Status Are patient's symptoms suggestive of a new infection, such as: -Pneumonia -Skin, Soft Tissue -Endocarditis -UTI -Bone, Joint Infection -Implantable Device -Acute Abdominal Infection -Wound Infection -Meningitis -Blood Stream Catheter Infection -Unknown Skin Complaint Exam - Skin/Soft Tissue Complaint/Exam Onset/Duration: 3mos Symptoms Are: Still present Initial Severity: Mild Current Severity: Mild Location: see triage Character: Denies: Redness, Swelling, Raised, Painful Aggravating: Reports: None Alleviating: Reports: None Associated Signs and Symptoms: Denies: Fever, Chills, Itching, Drainage, Bruising, Tenderness, Red streaks, Joint swelling Joint Tenderness Present: No Review of Systems - Review Of Systems Constitutional: Reports: No symptoms Eyes: Reports: No symptoms Ears, Nose, Mouth, Throat: Reports: No symptoms Respiratory: Reports: No symptoms Cardiac: Reports: No symptoms GI: Reports: No symptoms : Reports: No symptoms Musculoskeletal: Reports: No symptoms Skin: Reports: No symptoms Neurological: Reports: No symptoms Endocrine: Reports: No symptoms Hematologic/Lymphatic: Reports: No symptoms All Other Systems: Reviewed and Negative Past Medical History - Past Medical History Previously Healthy: Yes Endocrine: Reports: None, DM 2 Cardiovascular: Reports: Hypertension Respiratory: Reports: COPD Hematological: Reports: Anemia Gastrointestinal: Reports: None Genitourinary: Reports: None Neuro/Psych: Reports: TIA, Anxiety, Depression, Bipolar Disorder Musculoskeletal: Reports: Back Pain (PREVIOUS BACK FRACTURES) Cancer: Reports: None Last Menstrual Period: unknown Other Pertinent Past Medical History: BACK SURGERY TO REPAIR FRACTURES. - Surgical History General Surgical History: Reports: Orthopedic (BACK SURGERY TO REPAIR FRACTURES) , Back Surgery (BACK SURGERY TO REPAIR FRACTURES.). Denies: Tubal ligation ( left ovary removed) - Family History Family History: Reports: Unknown - Social History Smoking Status: Never smoker Hx Substance Use: No Alcohol Screening: None Physical Exam - Physical Exam Appearance: Well-appearing, No pain distress, Well-nourished Eyes: ONIEL, EOMI, Conjunctiva clear ENT: Ears normal, Nose normal, Oropharynx normal Neck: Supple Respiratory: Airway patent, Breath sounds clear, Breath sounds equal, Respirations nonlabored Cardiovascular: RRR, Pulses normal, No rub, No murmur GI/: Soft, Nontender, No masses, Bowel sounds normal, No Organomegaly Musculoskeletal: Normal strength, ROM intact, No edema, No calf tenderness Skin: Warm, Dry, Normal color Neurological: Sensation intact, Motor intact, Reflexes intact, Cranial nerves intact, Alert, Oriented Psychiatric: Affect appropriate Critical Care Note - Critical Care Note Total Time (mins): 0 Course - Course Hematology/Chemistry: 03/29/18 18:15 03/29/18 18:15 Orders, Labs, Meds: Lab Review 03/29/18 03/29/18 18:15 18:15 WBC 4.36 L RBC 3.90 L Hgb 10.6 L Hct 33.5 L MCV 85.9 MCH 27.2 MCHC 31.6 L RDW Coeff of Kwame 14.4 Plt Count 202 Immature Gran % (Auto) 0.2 Neut % (Auto) 39.0 Lymph % (Auto) 49.3 [place] % (Auto) 7.1 Eos % (Auto) 3.0 Baso % (Auto) 1.4 Immature Gran # (Auto) 0.0 Neut # (Auto) 1.7 L Lymph # (Auto) 2.2 [place] # (Auto) 0.3 L Eos # (Auto) 0.1 Baso # (Auto) 0.1 Sodium 145.4 H Potassium 4.08 Chloride 107.7 H Carbon Dioxide 30.0 Anion Gap 11.78 BUN 31.9 H Creatinine 1.22 Estimated GFR (MDRD) 45.00 BUN/Creatinine Ratio 26.14 Glucose 81.4 Calcium 9.81 Total Bilirubin 0.23 AST 37.8 H ALT 11.3 Alkaline Phosphatase 47.4 L Total Protein 7.57 Albumin 4.53 Globulin 3.04 Albumin/Globulin Ratio 1.49 TSH Pending Orders Category Date Time Status CBC W/ AUTO DIFF Stat LAB 03/29/18 18:15 Completed CMP [COMPREHENSIVE METABOLIC PANEL] Stat LAB 03/29/18 18:15 Results TESTOSTERONE, TOTAL Stat LAB 03/29/18 18:15 Received TSH [THYROID STIMULATING HORMONE] Stat LAB 03/29/18 18:15 Results Vital Signs: Temp Pulse Resp BP Pulse Ox 03/29/18 17:54 97.6 F 77 20 175/98 H 99 Departure - Departure Time of Disposition: 18:46 Disposition: HOME SELF-CARE Discharge Problem: Anemia Qualifiers: Anemia type: unspecified type Qualified Code(s): D64.9 - Anemia, unspecified Chronic kidney disease Qualifiers: Chronic kidney disease stage: stage 3 (moderate) Qualified Code(s): N18.3 - Chronic kidney disease, stage 3 (moderate) Instructions: Chronic Kidney Disease (ED) Condition: Fair Pt referred to PMD for follow-up: Yes IPMP verified?: No Additional Instructions: f/u with dr gonzalez for abnormal labs Allergies/Adverse Reactions: Allergies amitriptyline [From Elavil] Adverse Reaction (Verified 03/29/18 18:05) amoxicillin Adverse Reaction (Verified 03/29/18 18:05) bupropion [From Wellbutrin] Adverse Reaction (Verified 03/29/18 18:05) chlorpromazine [From Thorazine] Adverse Reaction (Verified 03/29/18 18:05) divalproex sodium [From Depakote] Adverse Reaction (Verified 03/29/18 18:05) fluoxetine [From Prozac] Adverse Reaction (Verified 03/29/18 18:05) haloperidol [From Haldol] Adverse Reaction (Verified 03/29/18 18:05) lithium Adverse Reaction (Verified 03/29/18 18:05) paroxetine [From Paxil] Adverse Reaction (Verified 03/29/18 18:05) trazodone Adverse Reaction (Verified 03/29/18 18:05) Home Medications: Ambulatory Orders Atorvastatin Calcium [Lipitor] 80 mg PO DAILY 04/20/16 Hydrocodone Bit/Acetaminophen [[place] 7.5-325] 1 tab PO TID 08/23/16 Amlodipine Besylate [Norvasc] 10 mg PO 1200 08/15/17 Tizanidine HCl 4 mg PO PRN 02/18/18 Disposition Discussed With: Patient
== END 2018-03-29 18:58 | disposition home or self-care (01) ==
LOC: ED 17:53
DX: N18.3 Chronic kidney disease, stage 3 (moderate) (principal); D63.1 Anemia in chronic kidney disease; E11.9 Type 2 diabetes mellitus without complications; I10 Essential (primary) hypertension; R79.9 Abnormal finding of blood chemistry, unspecified; Z79.899 Other long term (current) drug therapy; Z86.73 Personal history of transient ischemic attack (TIA), and cerebral infarction without residual deficits
CPT/HCPCS: 36415; 80053; 84403; 84443; 85025; 99283

== ENCOUNTER 2018-04-11 12:16 | Outpatient (CLI) | payer OTHER | END 2018-04-11 12:17 | disposition home or self-care (01) | LOC: LAB 12:16 | PROVIDERS: ATTEND Family Medicine | DX: E55.9 Vitamin D deficiency, unspecified (principal); R79.89 Other specified abnormal findings of blood chemistry; E11.9 Type 2 diabetes mellitus without complications | CPT/HCPCS: 36415; 82043; 82306; 82607 ==

== ENCOUNTER 2018-04-16 14:43 | Outpatient (CLI) | payer OTHER | END 2018-04-16 14:44 | disposition home or self-care (01) | LOC: LAB 14:43 | PROVIDERS: ATTEND Pain Medicine Interventional Pain Medicine | DX: Z51.81 Encounter for therapeutic drug level monitoring (principal); Z79.891 Long term (current) use of opiate analgesic | CPT/HCPCS: 36415; 80307 ==